=== PATIENT | female | born 2005 | race Caucasian/White ===

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

== ENCOUNTER 2025-09-16 18:35 | Emergency (ER) | payer BC | END 2025-09-16 19:15 | disposition home or self-care (01) | LOC: FB.ED 18:35 | DX: H65.04 Acute serous otitis media, recurrent, right ear (principal); F17.290 Nicotine dependence, other tobacco product, uncomplicated; Z88.0 Allergy status to penicillin | CPT/HCPCS: 99282; A9270; 99283 ==